=== PATIENT | female | born 1975 | race Caucasian/White ===

== ENCOUNTER 2020-05-23 18:17 | Emergency (ER) | payer MEDICAID, OTHER ==
[~2020-05-23] VITALS: Ht 154.9 cm; Wt 74.0 kg
[2020-05-23] MEDS ORDERED: SODIUM CHLORIDE 0.9% 1,000 ML IV ONE (22:30)
[2020-05-24 00:10] LABS: BASOPHILS % 0.8 % (0.0-2.0); HEMATOCRIT. 34.2 % (36.0-48.0); HEMOGLOBIN. 11.8 g/dL (12.0-16.0); LYMPHOCYTES % 39.3 % (20.0-50.0); MEAN CORPUSCULAR HEMOGLOBIN 31.3 pg (28.0-32.0); MEAN CORPUSCULAR VOLUME 90.9 fL (81.0-99.0); MEAN PLATELET VOLUME 7.3 fl (7.4-10.4); MONOCYTES % 5.1 % (2.0-8.0); NEUTROPHILS % 51.8 % (40.0-76.0); PLATELET 375 x1000/uL (130-400); RED BLOOD CELL COUNT 3.76 mill/uL (4.2-5.4); RED CELL DISTRIBUTION WIDTH 13.7 % (11.6-14.6)
[2020-05-24 00:14] LABS: CHLORIDE 106 mEq/L (98-107)
[2020-05-24 00:19] LABS: INR 1.1; PROTHROMBIN TIME 11.2 sec (9.6-11.0)
[2020-05-24 00:27] LABS: B-HCG QUANTITATIVE < 1 mIU/mL (<3)
[2020-05-24] MEDS ORDERED: ESTROGENS,CONJUGATED 25MG/VIAL IV ONE (03:45)
[2020-05-24 05:17] VITALS: BP 127/84
== END 2020-05-24 06:07 | disposition home or self-care (01) ==
LOC: ER 18:17
DX: N93.9 Abnormal uterine and vaginal bleeding, unspecified (principal); Z98.890 Other specified postprocedural states
CPT/HCPCS: 36415; 76830; 76856; 80053; 84702; 85025; 85610; 86850; 86900; 86901; 96361; 96374; 99284; J1410; J7030